=== PATIENT | female | born 1945 | race Caucasian/White ===

== ENCOUNTER → 2019-01-18 | Outpatient (CLI) | payer MEDICARE, OTHER ==
--- NOTE | 2019-01-18 17:52 | RAD ---
Thyroid ultrasound, 01/18/2019: HISTORY: Thyroid nodule The right lobe of the gland measures 3.9 x 0.9 x 1.5 cm while the left lobe of the gland measures 3.2 x 0.9 x 1.1 cm. There is a nodule in the medial aspect of the right lobe of the gland measuring 11 x 3 x 8 mm. It is wider than tall. It is predominantly anechoic with mild posterior acoustic enhancement suggesting a cystic process. There are several echogenic foci along its rim. No definite calcification is seen. No internal vascularity is evident. There is a small 3 mm hypoechoic nodule in the posterior aspect of the left lobe of the gland. There are 2 small echogenic internal foci. No internal color flow is seen. This is probably a small colloid cyst. No highly suspicious thyroid lesion is seen. IMPRESSION: Bilateral thyroid nodules as described above. Sonographic follow-up is suggested. Electronically signed by: Keith Chou MD (01/18/2019 5:50 PM) [facility]
--- NOTE | 2019-01-19 13:41 | RAD ---
DATE: 01/18/2019 EXAM: MAMMO SUHA SCREENING BILATERAL HISTORY: Routine screening COMPARISON: 08/15/2011 This study was interpreted with the benefit of Computerized Aided Detection (CAD). Breast Density: SCATTERED The breast parenchyma shows scattered fibroglandular densities. Breast parenchyma level B. FINDINGS: 2-D and 3-D tomosynthesis imaging was performed in CC and MLO projections. No new or enlarging breast densities are seen. There are scattered benign type calcifications. No suspicious microcalcifications have developed. IMPRESSION: Stable mammograms without evidence of malignancy. BI-RADS CATEGORY: 2 BENIGN FINDING(S) RECOMMENDED FOLLOW-UP: 12M 12 MONTH FOLLOW-UP PQRS compliance statement: Patient information was entered into a reminder system with a target due date for the next mammogram. Mammography is a sensitive method for finding small breast cancers, but it does not detect them all and is not a substitute for careful clinical examination. A negative mammogram does not negate a clinically suspicious finding and should not result in delay in biopsying a clinically suspicious abnormality. "Our facility is accredited by the [employer] Mammography Program."
== END | disposition home or self-care (01) ==
LOC: MAMMO 14:05
PROVIDERS: ATTEND Family Medicine
DX: Z12.31 Encounter for screening mammogram for malignant neoplasm of breast (principal); E04.2 Nontoxic multinodular goiter; N64.89 Other specified disorders of breast
CPT/HCPCS: 76536; 77063; 77067